=== PATIENT | male | born 1985 | race African-American/Black ===

== ENCOUNTER 2019-06-15 16:01 | Emergency (ER) | payer MEDICAID ==
[~2019-06-15] VITALS: Ht 167.6 cm; Wt 56.0 kg
[~2019-06-15 16:01] MED LIST: DEPAKOTE; RISPERDAL
[2019-06-15 18:38] VITALS: BP 110/76
== END 2019-06-15 18:40 | disposition home or self-care (01) ==
LOC: ER 16:01
DX: M54.41 Lumbago with sciatica, right side (principal); M79.604 Pain in right leg; F17.290 Nicotine dependence, other tobacco product, uncomplicated; F11.10 Opioid abuse, uncomplicated; J45.909 Unspecified asthma, uncomplicated; Z88.0 Allergy status to penicillin; Z91.013 Allergy to seafood
CPT/HCPCS: 99283